=== PATIENT | female | born 1975 | race Caucasian/White ===

== ENCOUNTER → 2021-05-01 10:08 | Outpatient (BNVA) | payer BC, SELFPAY | PROVIDERS: Family Provider Family Medicine; Visit Provider Emergency Medicine | DX: Z20.822 Contact with and (suspected) exposure to COVID-19 (principal) | CPT/HCPCS: 87635 ==

== ENCOUNTER → 2022-01-20 08:30 | Outpatient (BNVA) | payer BC, SELFPAY | PROVIDERS: Family Provider Family Medicine; Referring Provider Registered Nurse; Visit Provider Podiatrist Foot & Ankle Surgery | DX: G60.9 Hereditary and idiopathic neuropathy, unspecified (principal); M79.672 Pain in left foot | CPT/HCPCS: 73630 ==

== ENCOUNTER 2022-04-01 14:42 | Outpatient (CLI) | payer BC, SELFPAY ==
--- NOTE | 2022-04-01 14:51 | MM_ITS ---
WS: [id number] BILATERAL 3D TOMOSYNTHESIS DIGITAL SCREENING MAMMOGRAPHY WITH CAD CLINICAL INFORMATION: SCREENING COMPARISON: October 04, 2019 TECHNIQUE: Bilateral CC and MLO views. FINDINGS: Scattered fibroglandular densities bilaterally. No suspicious focal mass, asymmetry, calcifications, or architectural distortion. No evidence of malignancy. MM/[place] [id number] IMPRESSION: BI-RADS: 1-Negative FOLLOW UP: 1 Year Follow-up Recommend return to annual screening mammography.
== END 2022-04-01 14:43 | disposition home or self-care (01) ==
LOC: RAD 14:44
PROVIDERS: PCP Registered Nurse; Visit Provider Registered Nurse
DX: Z12.31 Encounter for screening mammogram for malignant neoplasm of breast (principal)
CPT/HCPCS: 77063; 77067

== ENCOUNTER → 2022-08-12 17:25 | Outpatient (BNVA) | payer BC, SELFPAY | PROVIDERS: PCP Registered Nurse; Visit Provider Nurse Practitioner | DX: S99.922A Unspecified injury of left foot, initial encounter (principal); S90.852A Superficial foreign body, left foot, initial encounter; M77.32 Calcaneal spur, left foot; M21.612 Bunion of left foot; X58.XXXA Exposure to other specified factors, initial encounter | CPT/HCPCS: 73630 ==

== ENCOUNTER → 2023-03-05 16:56 | Outpatient (BNVA) | payer BC, SELFPAY | PROVIDERS: PCP Registered Nurse; Visit Provider Nurse Practitioner Family | DX: S89.91XA Unspecified injury of right lower leg, initial encounter (principal); X58.XXXA Exposure to other specified factors, initial encounter | CPT/HCPCS: 73590 ==

== ENCOUNTER 2023-04-17 13:37 | Outpatient (CLI) | payer BC, SELFPAY ==
--- NOTE | 2023-04-17 13:30 | USCV_ITS ---
Paulette Brittney Age: 48 Gender: F : 1975 Exam Date: 04/17/2023 14:08 Ordering Phys: Edvin Eden MD (Andy) ([email or web address]) Technologist: CT [place] [facility] [place]: [place] pain left PROCEDURES: Venous duplex imaging was performed in only the left lower extremity. On the left side, the common femoral, superficial femoral, profunda femoral, popliteal, posterior tibial, greater saphenous veins, and the peroneal trunk were identified and interrogated in the standard fashion. These veins were found to be easily compressible with spontaneous blood flow. No evidence of insufficiency or thrombus noted. FINDINGS: normal us CONCLUSIONS No evidence of left lower extremity DVT. Nirav Chauhan MD (Electronically Signed) Final Date: 17 April 2023 16:13 S
== END 2023-04-17 13:38 | disposition home or self-care (01) ==
LOC: RAD 13:38
PROVIDERS: PCP Registered Nurse; Visit Provider Thoracic Surgery (Cardiothoracic Vascular Surgery)
DX: M79.662 Pain in left lower leg (principal)
CPT/HCPCS: 93971

== ENCOUNTER 2023-04-20 16:07 | Outpatient (CLI) | payer BC, SELFPAY ==
--- NOTE | 2023-04-20 16:15 | USCV_ITS ---
Brittney Caldwell Age: 48 Gender: F : 1975 Exam Date: 04/20/2023 16:26 Ordering Phys: Winnie Pinzon DO Technologist: CT [place]am [place] [facility] [place] Indication: rt leg ulcer Risk Factors: Previous Vascular Surgery: RIGHT LEFT BP: 127.0 / 80.00 BP: 130.0/ 83.00 0 0 Waveform Velocity (cm/s) Velocity (cm/s) Waveform Triphasic 128.5 Iliac Prox Triphasic 122.1 Iliac Mid Triphasic 102.0 Iliac Distal Triphasic 108.4 FARE ENFORCEMENT OFFICER Triphasic 103.1 SFA Prox Triphasic 107.0 SFA Mid Triphasic 126.9 SFA Dist Triphasic 80.7 POP Triphasic 74.1 GEOLOGY PROFESSOR Triphasic 97.5 DPA 1.0 LINDSEY 1.0 FINDINGS Resting LINDSEY 1.0 on the right side Normal arterial Doppler waveforms and Doppler flow velocities No significant plaques or unstable lesions CONCLUSIONS 1. Normal resting LINDSEY with normal Doppler velocities and waveforms on the right side 2. The above features suggesting no significant arterial obstruction Dr Jitendra Griffin MD [facility] (Electronically Signed) Final Date: 21 April 2023 09:53 S
== END 2023-04-20 16:08 | disposition home or self-care (01) ==
LOC: RAD 16:07
PROVIDERS: PCP Registered Nurse; Visit Provider Emergency Medicine
DX: L97.919 Non-pressure chronic ulcer of unspecified part of right lower leg with unspecified severity (principal)
CPT/HCPCS: 93926

== ENCOUNTER → 2023-05-13 09:28 | Outpatient (BNVA) | payer BC, SELFPAY | PROVIDERS: PCP Registered Nurse; Visit Provider Nurse Practitioner Family | DX: R42 Dizziness and giddiness (principal); J06.9 Acute upper respiratory infection, unspecified | CPT/HCPCS: 87400; 87426 ==

== ENCOUNTER → 2024-01-14 14:31 | Outpatient (BNVA) | payer BC, SELFPAY | PROVIDERS: PCP Family Medicine | DX: Z20.822 Contact with and (suspected) exposure to COVID-19 (principal); R39.9 Unspecified symptoms and signs involving the genitourinary system; N39.0 Urinary tract infection, site not specified | CPT/HCPCS: 81000; 87086; 87426 ==

== ENCOUNTER 2024-04-07 07:07 | Outpatient (CLI) | payer BC, SELFPAY ==
--- NOTE | 2024-04-07 07:18 | MM_ITS ---
WS: [id number] SCREENING DIGITAL BREAST TOMOSYNTHESIS MAMMOGRAM WITH CAD HISTORY: SCREENING COMPARISON: 04/01/2022, 10/04/2019 Bilateral CC and MLO with tomosynthesis and synthetic mammography submitted. Computer aided detection analyzed. Breast composition: There are scattered areas of fibroglandular density. On the MLO projections the s uperior breast along the axillary tails have not been completely included to visualize the entire stephan ast tissue. No additional masses or calcifications. MM/MM [facility] tomosynthesis [id number] IMPRESSION: BI-RADS: 0 - Incomplete: Need additional imaging evaluation. FOLLOW UP: Need Additional Imaging Recommend additional bilateral MLO imaging to include more of the axillary tail s of each breast towards the axilla. The entire breast has not been included.
== END 2024-04-07 07:08 | disposition home or self-care (01) ==
LOC: RAD 07:10
PROVIDERS: PCP Family Medicine; Visit Provider Family Medicine
DX: Z12.31 Encounter for screening mammogram for malignant neoplasm of breast (principal); R92.323 Mammographic fibroglandular density, bilateral breasts
CPT/HCPCS: 77063; 77067